=== PATIENT | female | born 1970 | race Caucasian/White ===

== ENCOUNTER → 2016-11-02 | Outpatient (REF) | LOC: WSOH 11:00 | DX: Z02.1 Encounter for pre-employment examination (principal) ==

== ENCOUNTER → 2016-11-06 | Outpatient (REF) | LOC: WSOH 16:15 | DX: Z02.89 Encounter for other administrative examinations (principal) ==

== ENCOUNTER → 2016-11-12 | Outpatient (REF) | LOC: WSOH 08:02 | DX: Z02.89 Encounter for other administrative examinations (principal) ==

== ENCOUNTER 2017-10-14 08:00 | Outpatient (RCR) | payer OTHER | END 2017-10-22 | disposition home or self-care (01) | LOC: WSC | DX: M75.81 Other shoulder lesions, right shoulder (principal) ==

== ENCOUNTER 2017-11-13 07:30 | Outpatient (RCR) | payer OTHER | END 2018-01-21 | disposition home or self-care (01) | LOC: WSC | DX: M75.81 Other shoulder lesions, right shoulder (principal); Z79.899 Other long term (current) drug therapy ==

== ENCOUNTER 2018-11-28 09:03 | Day surgery (SDC) | payer OTHER ==
[~2018-11-28] VITALS: Ht 160 cm; Wt 81.3 kg
[2018-11-28 09:19] VITALS: BP 122/88; PULSE 50; TEMP 97.7
[2018-11-28] MEDS ORDERED: SYNTHROID0.125 MG/T PO (09:21)
[2018-11-28] MEDS ORDERED: MIRAPEX 0.0.125 MG/T PO (09:21)
[2018-11-28 10:05] VITALS: BP 90/50; PULSE 64
--- NOTE | 2018-11-28 10:05 | NUR ---
Patient states she is still feeling dizzy with mild nausea. Provided more water. WIll continue to let patient rest. Mother at bedside at this time. Will continue to monitor.
[2018-11-28 10:30] VITALS: BP 126/81; PULSE 51; TEMP 97.6
--- NOTE | 2018-11-28 10:30 | NUR ---
Patient brought back to [facility] via cart. Ambulated to chair without difficulty. at bedside. Hooked to monitor, vital signs stable. Requesting pudding and sprite. Denies nausea or pain, will continue to monitor.
[2018-11-28 10:45] VITALS: BP 123/84; PULSE 53
--- NOTE | 2018-11-28 10:45 | NUR ---
Patient states she is feeling well. Tolerating food and drink without difficulty. Vital signs stable will continue to monitor.
--- NOTE | 2018-11-28 10:45 | NUR ---
Patient tolerating food and drink without difficulty. States she is feeling well. Vital signs stable. at bedside. Call pino within reach, will continue to monitor.
[2018-11-28 11:00] VITALS: BP 113/73; PULSE 52
--- NOTE | 2018-11-28 11:00 | NUR ---
Patient states she feels ready to go home. Vital signs stable. Denies pain or nausea. Patient to get dressed at this time.
--- NOTE | 2018-11-28 11:18 | NUR ---
Discharge instructions reviewed with patient and . Verbalized understanding. Ambulated to lobby with this RN, goldy. To be driven home by .
== END 2018-11-28 11:18 | disposition home or self-care (01) ==
LOC: SDCO 09:03
DX: Z12.11 Encounter for screening for malignant neoplasm of colon (principal); K64.1 Second degree hemorrhoids; G25.81 Restless legs syndrome; E03.9 Hypothyroidism, unspecified; F32.9 Major depressive disorder, single episode, unspecified; D50.9 Iron deficiency anemia, unspecified; Z90.710 Acquired absence of both cervix and uterus; Z83.71 Family history of colonic polyps
CPT/HCPCS: J7030

== ENCOUNTER → 2019-11-06 | Outpatient (CLI) | payer OTHER ==
[~2019-11-06] MED LIST: MIRAPEX 0.0.125 MG/T PO; SYNTHROID0.125 MG/T PO
== END ==
LOC: MC.RAD 07:30
DX: Z12.31 Encounter for screening mammogram for malignant neoplasm of breast (principal); N63.21 Unspecified lump in the left breast, upper outer quadrant

== ENCOUNTER → 2019-11-12 | Outpatient (CLI) | payer OTHER | LOC: MC.RAD 08:23 | DX: N63.20 Unspecified lump in the left breast, unspecified quadrant (principal) ==

== ENCOUNTER → 2019-11-18 | Outpatient (CLI) | payer OTHER | LOC: MC.RAD 06:58 | DX: N63.20 Unspecified lump in the left breast, unspecified quadrant (principal); N64.89 Other specified disorders of breast ==

== ENCOUNTER 2020-03-08 08:30 | Outpatient (RCR) | payer OTHER | END 2020-03-21 | disposition home or self-care (01) | LOC: WSPT | DX: M25.512 Pain in left shoulder (principal); Z90.12 Acquired absence of left breast and nipple | CPT/HCPCS: G0283-GP ==